=== PATIENT | female | born 1965 | race African-American/Black ===

== ENCOUNTER 2021-04-25 08:04 | Emergency (ER) | payer OTHER ==
[~2021-04-25] VITALS: Ht 170.2 cm; Wt 90.9 kg
[~2021-04-25 08:04] MED LIST: ACET-2080 PO; AMLO-257 PO; CHOL100030 PO; CITA-144 PO; CLON0.1T2 PO; DOCU-281 PO; IBUP200C5 PO; LORA10TA7 PO; LOSA50TA37 PO; MELO-107 PO; METF-960 PO; MOME17N NASAL; SIMV-261 PO
[2021-04-25 08:59] VITALS: BP 109/65
[2021-04-25] MEDS ORDERED: IBUPROFEN 600 MG TABLET PO ONE (09:15)
[2021-04-25] MEDS ORDERED: ACETAMINOPHEN 500 MG TABLET PO ONE (09:15)
== END 2021-04-25 09:56 | disposition home or self-care (01) ==
LOC: EMS 08:04
DX: M72.2 Plantar fascial fibromatosis (principal); M54.16 Radiculopathy, lumbar region; I10 Essential (primary) hypertension; E78.00 Pure hypercholesterolemia, unspecified; K21.9 Gastro-esophageal reflux disease without esophagitis; F32.9 Major depressive disorder, single episode, unspecified; F17.210 Nicotine dependence, cigarettes, uncomplicated; Z88.8 Allergy status to other drugs, medicaments and biological substances; Z79.899 Other long term (current) drug therapy; Z79.84 Long term (current) use of oral hypoglycemic drugs
CPT/HCPCS: 99283

== ENCOUNTER 2021-08-22 10:28 | Emergency (ER) | payer OTHER ==
[~2021-08-22] VITALS: Ht 172.7 cm; Wt 86.4 kg
[~2021-08-22 10:28] MED LIST changes: +METF-1211 PO; -METF-960 PO
[2021-08-22 11:56] VITALS: BP 119/79
== END 2021-08-22 11:58 | disposition home or self-care (01) ==
LOC: EMS 10:28
DX: R22.41 Localized swelling, mass and lump, right lower limb (principal); E78.00 Pure hypercholesterolemia, unspecified; I10 Essential (primary) hypertension; F17.210 Nicotine dependence, cigarettes, uncomplicated; Z88.6 Allergy status to analgesic agent; Z79.84 Long term (current) use of oral hypoglycemic drugs
CPT/HCPCS: 99283

== ENCOUNTER 2023-08-30 07:55 | Emergency (ER) | payer OTHER ==
[~2023-08-30] VITALS: Ht 172.7 cm; Wt 51.8 kg
[~2023-08-30 07:55] MED LIST changes: +LOSA-382 PO; -LOSA50TA37 PO; -MELO-107 PO; +MELO-381 PO
[2023-08-30 08:03] VITALS: TEMP 98.5
[2023-08-30] MEDS ORDERED: OxyCODONE HCL/ACETAMINOPHEN 5-325 MG TABLET PO ONE (09:45)
[2023-08-30] MEDS ORDERED: KETOROLAC TROMETHAMINE 60 MG/2 ML VIAL IM ONE (09:45)
[2023-08-30] MEDS ORDERED: METHOCARBAMOL 500 MG TABLET PO ONE (09:45)
[2023-08-30] MEDS ORDERED: IBUP-1492 PO ×2 (11:00→11:47)
[2023-08-30] MEDS ORDERED: METH-659 PO ×2 (11:01→11:47)
[2023-08-30] MEDS ORDERED: PERCT PO ×2 (11:02→11:47)
[2023-08-30 11:15] VITALS: BP 130/77; PULSE 80; RESP 18
== END 2023-08-30 11:33 | disposition home or self-care (01) ==
LOC: EMS 07:58
DX: M75.102 Unspecified rotator cuff tear or rupture of left shoulder, not specified as traumatic (principal); E78.00 Pure hypercholesterolemia, unspecified; I10 Essential (primary) hypertension; F17.210 Nicotine dependence, cigarettes, uncomplicated; Z98.890 Other specified postprocedural states; Z88.8 Allergy status to other drugs, medicaments and biological substances
CPT/HCPCS: 99283; 96372; J1885